=== PATIENT | female | born 1945 | race Caucasian/White ===

== ENCOUNTER → 2024-11-04 | Outpatient (CLI) | payer MEDICARE ==
[~2024-11-04] MED LIST: APIX2.5T PO; DILT60TA3 PO; GADOTERATE MEGLUMINE 10 MMOL/20 ML VIAL IV ONE; HYDR-3421 PO; LEVO50CA4 PO; TERI2.4P SQ; VENL150C5 PO
--- NOTE | 2024-11-04 09:47 | HMCIMG ---
MRCP(ABDWWO)CHOLANGIOPANCREATO HISTORY: Abnormal findings COMPARISON: None TECHNIQUE: MRI of the abdomen was performed utilizing multiple pulse sequences in axial, coronal and sagittal planes. Patient was given 12 cc of Clariscan through intravenous route. MRCP was performed. FINDINGS: No pleural effusion is seen bilaterally. Liver measures 16 cm. Spleen, adrenal glands and pancreas are unremarkable. Gallbladder is not seen. Common duct measures 8 mm. Tiny filling defects are seen in the distal common duct may be related to tiny common duct stones. Both kidneys are seen without hydronephrosis. No mass lesion or abnormal enhancement is seen. IMPRESSION: 1. Tiny filling defects in the distal common duct may be related to tiny common duct stones. Gallbladder is not visualized. No mass lesion is seen.
== END | disposition home or self-care (01) ==
LOC: RAH 07:30
PROVIDERS: ATTEND Internal Medicine
DX: R93.3 Abnormal findings on diagnostic imaging of other parts of digestive tract (principal); I10 Essential (primary) hypertension
CPT/HCPCS: 74183; A9575